=== PATIENT | female | born 1955 | race Two or more races ===

== ENCOUNTER 2024-11-09 08:27 | Day surgery (SDC) | payer OTHER ==
[~2024-11-09] VITALS: Ht 154.9 cm; Wt 75.7 kg
[~2024-11-09 08:27] MED LIST: AMLO1TAB21 PO; BENZ100C97 PO; CHOL200064 PO; FLUT1AER3 IN; FLUT50SP; FOLI-119 PO; HYDR200T36 PO; LISI40TA16 PO; LORA-622 PO; METH2.5T PO; OXYB5TAB14 PO
[2024-11-09 10:12] VITALS: TEMP 98.4
--- NOTE | 2024-11-09 10:35 | DVHHP2 ---
GI H&P Pre-Op Assessment Date: 11/09/24 Chief complaint: colon cancer screening, epigastric pain HPI: per clinic note Past medical history: per clinic note Past surgical history: per clinic note Family history: per clinic note Physical exam: General: NAD, AAOX3 HEENT: PERRL, no scleral icterus, normal hearing, gums without lesions or bleeding, oropharynx clear without erythema or exudate. Neck: Supple without enlargement of the thyroid, or lymphadenopathy. Chest: Normal size and shape, no tenderness, lung vallecillo clear to auscultation and percussion, nonlabored breathing. Heart: RRR, no murmur Abdomen: non-distended, no tenderness to palpation, +BS, no hepatosplenomegaly Extremities: no edema Neurological: CN II-XII intact, sensation intact in all extremities, 5+ strength in all extremities Skin: No rashes, No jaundice Assessment: - colon cancer screening - epigastric pain Plan: - EGD - Colonoscopy - Risks (bleeding, infection, perforation, reaction to sedation medications and cardiopulmonary arrest) and benefit of the procedure were explained to patient. Patient agrees to undergo the procedure. MICHAEL VALENZUELA MD Nov 09, 2024 10:35
[2024-11-09] MEDS ORDERED: fentaNYL CITRATE 100 MCG/2 ML VL ONE (10:53)
[2024-11-09] MEDS ORDERED: ONDANSETRON HCL 4 MG/2 ML VIAL ONE (11:07)
--- NOTE | 2024-11-09 11:13 | DVHOP2 ---
Operative Report DATE OF OPERATION: 11/09/24 PROCEDURE: Upper Endoscopy. PREOPERATIVE INDICATION: The patient is a 69 -year-old female undergoing endoscopy for epigastric pain. POSTOPERATIVE DIAGNOSES: 1. Slight duodenitis in the bulb. 2. Mild gastritis PROCEDURE PERFORMED BY: Chaim Webb SCOPE: Olympus videoendoscope. ASA CLASS: 3 PREOPERATIVE MEDICATIONS: MAC with Dr Barahona PROCEDURE IN DETAIL: After obtaining an informed consent, the patient was placed on left lateral decubitus position. The patient was then sedated with the above medications. A bite block was placed between her teeth. The endoscope was then passed through the oropharynx, into the esophagus, and through the stomach and pylorus up to the second and third part of the duodenum. There was slight duodenitis in the bulb. There was mild gastritis. Gastric biopsies were obtained. The GEJ was normal in appearance at 35 cm. The esophagus was normal in appearance. The endoscope was then withdrawn. The patient tolerated the procedure well without difficulty. COMPLICATIONS : None SPECIMENS: Gastric biopsies DISPOSITION: D/C to home PLAN: 1. Await for biopsy result CHAIM WEBB MD Nov 09, 2024 11:13
--- NOTE | 2024-11-09 11:14 | DVHOP2 ---
Operative Report DATE OF OPERATION: 11/09/24 PROCEDURE: Colonoscopy. PREOPERATIVE INDICATION: The patient is a 69 -year-old female undergoing colonoscopy for colon cancer screening. POSTOPERATIVE DIAGNOSES: 1. Diverticulosis in the left colon. 2. Internal hemorrhoids. PROCEDURE PERFORMED BY: Chaim Webb M.D. SCOPE: Olympus videocolonoscope. ASA CLASS: 3 PREOPERATIVE MEDICATIONS: MAC with Dr Barahona PROCEDURE IN DETAIL: After obtaining an informed consent, the patient was placed on left lateral decubitus position. She was then sedated with the above medications. A rectal examination was performed that was normal. The colonoscope was then passed through the anus into the rectosigmoid and through the descending, transverse, and ascending colon up to the cecum with visualization of the appendiceal orifice, base of the cecum and the ileocecal valve. No mass or polyp was observed. There was diverticulosis in the left colon. There were internal hemorrhoids. The colonoscope was then withdrawn. The patient tolerated the procedure well without difficulty. WITHDRAWAL TIME: 6 minutes QUALITY OF THE PREP: Purmela Bowel Prep score: 6 COMPLICATIONS : None SPECIMENS: None DISPOSITION: D/C to home PLAN: 1. Repeat colonoscopy bin 10 years for colon cancer screening. CHAIM WEBB MD Nov 09, 2024 11:14
--- NOTE | 2024-11-09 11:15 | DVHDS2 ---
Physician Discharge Progress N Final Diagnosis: duodenitis, gastritis diverticulosis,internal hemorrhoids. Operations or Procedures: Operations or Procedures EGD with biopsy colonoscopy Condition on Discharge: Good Disposition: Home Discharge Instructions: Diet: Regular Activity: No Restrictions, As Tolerated Medications: resume with previous home medications. Follow Up Care: Discharge Statement: "Patient was advised to return to the ER or call 911 if any headaches, dizziness, shortness of breath, chest pain, abdominal pain, bleeding, fevers, or worsening of medical condition. Patient was counseled about treatment plan, medications, possible side effects, patientverbalized understanding. All questions were answered to the best of my ability. This discharge took greater then 30 minutes in planning, reviewing documentation, counseling the patient, and discussing with other team members." MICHAEL VALENZUELA MD Nov 09, 2024 11:15
[2024-11-09 11:18] VITALS: PULSE 69; RESP 16; O2SAT 100
[2024-11-09 11:30] VITALS: RESP 18; O2SAT 98
[2024-11-09 11:45] VITALS: RESP 20; O2SAT 96
[2024-11-09 12:00] VITALS: BP 132/80; PULSE 71; RESP 17; RESP 18; O2SAT 96
== END 2024-11-09 12:10 | disposition home or self-care (01) ==
LOC: GI 08:27
PROVIDERS: ATTEND Internal Medicine Gastroenterology
DX: Z12.11 Encounter for screening for malignant neoplasm of colon (principal); K57.30 Diverticulosis of large intestine without perforation or abscess without bleeding; K64.8 Other hemorrhoids; K29.50 Unspecified chronic gastritis without bleeding; K29.80 Duodenitis without bleeding; K21.9 Gastro-esophageal reflux disease without esophagitis; R10.13 Epigastric pain; E78.5 Hyperlipidemia, unspecified; J45.909 Unspecified asthma, uncomplicated; R93.3 Abnormal findings on diagnostic imaging of other parts of digestive tract; Z79.899 Other long term (current) drug therapy; Z86.2 Personal history of diseases of the blood and blood-forming organs and certain disorders involving the immune mechanism; Z98.891 History of uterine scar from previous surgery; Z86.0100 Personal history of colon polyps, unspecified; Z98.890 Other specified postprocedural states; Z88.1 Allergy status to other antibiotic agents; Z88.5 Allergy status to narcotic agent
CPT/HCPCS: 43239; 88305; 88312; 88342; G0105; J2405; J3010; J7030